=== PATIENT | female | born 1995 | race Asian ===

== ENCOUNTER 2022-05-13 22:33 | Emergency (ER) | payer SELFPAY ==
[~2022-05-13] VITALS: Ht 154.9 cm; Wt 53.2 kg
[2022-05-13 22:39] VITALS: BP 121/81
[2022-05-14] MEDS ORDERED: ACETAMINOPHEN 325MG TABLET PO ONE (01:30)
[2022-05-14] MEDS ORDERED: BACITRACIN ZINC OINT UDPKT TOP ONE (01:30)
[2022-05-14] MEDS ORDERED: TETANUS, DIPHTHERIA, PERTUSSIS VAC/PF 0.5ML (>10YR OLD) IM ONE (01:30)
[2022-05-14] MEDS ORDERED: IBUP-2029 PO (01:32)
[2022-05-14] MEDS ORDERED: AMOX1TAB16 PO (01:32)
== END 2022-05-14 02:49 | disposition home or self-care (01) ==
LOC: ER 22:33
DX: S80.872A Other superficial bite, left lower leg, initial encounter (principal); W54.0XXA Bitten by dog, initial encounter; Y93.89 Activity, other specified; Y92.89 Other specified places as the place of occurrence of the external cause
CPT/HCPCS: 90471; 90715; 99283